=== PATIENT | male | born 1970 | race Caucasian/White ===

== ENCOUNTER 2025-10-18 22:28 | Emergency (ER) | payer MEDICARE, SELFPAY ==
[2025-10-18 22:31] VITALS: BP 102/77
[2025-10-18 23:35] VITALS: BMI 25.1
[2025-10-18 23:51] VITALS: BP 100/78
[2025-10-19] VITALS (11 sets, daily range): BP systolic 94–113; BP diastolic 70–88
[2025-10-19 00:59] LABS: Hematocrit 36.4 % (39.0-52.0); Hemoglobin 13.0 g/dL (13.0-18.0); Mean Corp Hgb Conc. 35.7 g/dL (33.0-37.0); Mean Corpuscular Volume 88.3 fL (80.0-94.0); Nucleated Red Blood Cells % 0 % (-); Platelet Count 233 10^3/uL (130-400); Red Cell Dist. Width 12.7 % (11.5-14.5)
--- NOTE | 2025-10-19 03:05 | DOWNTIME ---
There was a [employer] Downtime on 10/19/2025 from 0100 to 10/19/2025 at 0255. Downtime documentation of patient's care, including medication administrations, has been reconciled in the electronic record per guidelines. Refer to the
patient's paper chart under the miscellaneous tab to see printed paper medication records and downtime forms.
[2025-10-19 03:08] LABS: ALT (SGPT) 18 U/L (0-50); AST (SGOT) 30 U/L (17-59); Albumin 4.4 g/dl (3.5-5.0); Alkaline Phosphatase 77 U/L (38-126); Blood Urea Nitrogen 11 mg/dl (9-20); Calcium 9.9 mg/dl (8.4-10.2); Carbon Dioxide 26 mmol/L (22-30); Chloride 104 mmol/L (98-107); Estimated Creatinine Clearance 99 ml/min; Glucose 101 mg/dl (70-99); Potassium 3.5 mmol/L (3.5-5.1); Sodium 136 mmol/L (135-145); Total Protein 7.3 g/dl (6.3-8.2); eGFR > 60.00
--- NOTE | 2025-10-19 03:27 | ED.GENMED ---
History of Present Illness
General
Chief Complaint: Alcohol Problem
Source: patient
Exam Limitations: none
Time Seen by Provider: 10/19/25 02:56
Nursing documentation reviewed up to this point in time: agreed with
History of Present Illness
History of Present Illness:
Note:
CHIEF COMPLAINT(S)
Alcohol use disorder presenting to the emergency department for assistance with rehabilitation.
HISTORY OF PRESENT ILLNESS
The patient is a 55-year-old male who presented to the emergency department seeking help for alcohol use disorder. He reports drinking a substantial amount daily, although the exact quantity was not specified. He has previously attempted to enter
rehabilitation facilities, having been to [place] and another facility, referred to as [facility]. The patient expressed a willingness to receive assistance and mentioned past attempts at rehabilitation.
SOCIAL HISTORY
The patient reports extensive alcohol use, indicating it as part of his daily life. Attempts to enter rehabilitation facilities in the past have been unsuccessful.
PHYSICAL EXAM
General: Alert, no acute distress.
Skin: Warm, dry.
Head: Normocephalic, atraumatic.
Neck: Supple, trachea midline.
Eye Ears, nose, mouth, and throat: Oral mucosa moist.
Cardiovascular: Normal peripheral perfusion, no edema.
Respiratory: Respirations are non-labored.
Gastrointestinal : Abdomen nondistended
Back: Normal range of motion, normal alignment.
Musculoskeletal: Normal range of motion, normal strength.
Neurological: Alert and oriented to person, place, time, and situation, no focal neurological deficit observed.
Psychiatric: Cooperative, appropriate mood & affect.
PLAN
The patient is to be evaluated by addiction specialists for potential entry into a rehabilitation program. Counseling and further support will be provided by the team specialized in handling alcohol use disorder.
DIFFERENTIAL DIAGNOSIS
The Differential Diagnosis includes, in no particular order and is not limited to:
1. Alcohol use disorder
2. Delirium tremens
3. Alcohol withdrawal syndrome
4. Depression secondary to substance use
5. Anxiety disorder
6. Liver disease related to alcohol use
7. Cardiomyopathy
8. Gastrointestinal complications related to alcohol abuse
9. Nutritional deficiencies
10. Cognitive impairment related to alcohol use
Disposition:
SUMMARY OF ENCOUNTER
The patient is a 55-year-old male seen in the emergency department for alcohol use disorder. He reported daily alcohol consumption and sought assistance for rehabilitation. The patient expressed interest in entering a rehabilitation program,
acknowledging past unsuccessful attempts at facilities such as [facility] [place]. The evaluation in the emergency department showed he was in no acute distress, and his physical examination was unremarkable aside from the history of alcohol
use.
DISPOSITION
The patient is deemed stable for discharge with plans to be placed in a rehabilitation facility.
ASSESSMENT
Alcohol use disorder. The patient is seeking rehabilitation assistance with no current signs of alcohol intoxication.
PLAN
The patient will be evaluated by addiction specialists for potential entry into a rehabilitation program. The necessary arrangements to contact a rehabilitation facility will be attempted for immediate placement.
MEDICAL DECISION MAKING
- Complexity of Data Reviewed: Chronic conditions affecting care such as alcohol use disorder. Potential comorbid diagnoses include alcohol withdrawal syndrome, depression secondary to substance use, anxiety disorder, liver disease related to
alcohol use, alcohol-related cardiomyopathy, gastrointestinal complications, nutritional deficiencies, and cognitive impairment related to alcohol use.
Category 3:
Discussion of management with a mental health liaison or medical management specialist to facilitate the patients entry into a rehabilitation program.
-Risk:
Given the complexity and risk associated with the patients alcohol use disorder, efforts were made for direct referral to a rehabilitation program. Social determinants of health significantly affect this care, given the patients history and daily
alcohol consumption.
If unable to place patient, he will be discharged. Patient was initially uncooperative. He does not show any signs of alcohol withdrawal. no indication for admit at this time.
Past History
Past History
ED Past Medical History: None
ED Past Surgical History: None
Social History
Tobacco: Smoker
Alcohol: Daily
Drug: None
Personal: Single
Living: homeless
Employment: Employed
Family History
Family History: Other (Noncontributory)
Phy Exam
Physical Exam
Physical Exam:
.
Scores
Withdrawal Assessment of Alcohol
Withdrawal Assessment Completed?: Yes
Nausea and Vomiting: No nausea and no vomiting
Tactile Disturbances: None
Tremor: No tremor
Auditory Disturbances: Not present
Paroxysmal Sweats: No sweat visible
Visual Disturbances: Not present
Anxiety: No anxiety, at ease
Headache, Fullness in Head: Not present
Agitation: Normal activity
Orientation and clouding of sensorium: Oriented and can do serial additions
Total CIWA Score: 0
Alcohol Withdrawal Medication Recommendation: Equal to MSAS Score 0-4. Monitor & re-assess q2hrs, NO MEDICATION NEEDED
Course
Orders/Labs/Results
Orders:
Orders
10/19/25 00:45
Alcohol Urgent
Complete Blood Count/With Diff Urgent
Comprehensive Metabolic Panel Urgent
Abnormal Lab Results
10/19/25
00:45
RBC 4.12 L 10^6/uL
(4.70-6.10)
Hct 36.4 L %
(39.0-52.0)
MCH 31.6 H pg
(27.0-31.0)
Absolute Monos (auto) 0.8 H 10^3/uL
(0.1-0.6)
Immature Gran % 0.6 H %
(0-0.5)
Lymphocytes % 19.8 L %
(20.5-51.1)
Monocytes % 11.6 H %
(1.7-9.3)
Glucose 101 H mg/dl
(70-99)
10/19/25 00:45
10/19/25 00:45
Vital Signs
Initial and Last Documented VS:
Initial Vital Signs
Temp Pulse Resp BP Pulse Ox
98 F 90 16 102/77 96
10/18/25 22:31 10/18/25 22:31 10/18/25 22:31 10/18/25 22:31 10/18/25 22:31
Last Documented Vital Signs
Temp Pulse Resp BP Pulse Ox
98 F 54 18 94/80 96
10/18/25 22:31 10/19/25 03:15 10/19/25 03:15 10/19/25 00:40 10/19/25 03:29
*Pulse Oximetry
SaO2: 96
Oxygen Mode of Delivery: Room air
Patient hypoxic: no
*Critical Care Note
Total Time (30-74mins, 75-104mins- exclusive of procedures): Not Applicable
ED Attending Note
-
Portions of this chart may have been created with voice recognition software.� Occasional wrong word or��sound alike� substitutions may have occurred due to the inherent limitations of voice recognition software.
Discharge Plan
Departure
Patient Disposition: Other
Date of Disposition: 10/19/25
Time of Disposition: 03:28
Patient with high blood pressure during this ER visit?: No
Condition: Good
Discharge Problem:
Alcohol abuse
Instructions: Alcohol Use Disorder (DC)
Prescriptions:
No Action
No Current Medications
0
Referrals:
NONE,* [Family Provider, Internal Medicine]
Interventions
Interventions:
*Risk Screen - Suicide Last Done: 10/18/25 22:33
*General Assessment Last Done: 10/18/25 23:35
*Neglect/Abuse Screening Last Done: 10/18/25 22:33
*ED- Fall Risk Assessment Last Done: 10/18/25 23:35
*ED COVID-19 Vaccine History Last Done: 10/18/25 23:35
*ED Influenza Vaccine History Last Done: 10/18/25 23:35
ED- Neurological Assessment Last Done: 10/18/25 23:35
ED-Psychological Assessment Last Done: 10/18/25 23:35
Discharge Date and Time
Print Language: KENYAN
--- NOTE | 2025-10-19 06:32 | ED.GENMED ---
History of Present Illness
General
Chief Complaint: Alcohol Problem
Time Seen by Provider: 10/19/25 02:56
History of Present Illness
History of Present Illness:
.
Past History
Past History
ED Past Medical History: None
ED Past Surgical History: None
Social History
Tobacco: Smoker
Alcohol: Daily
Drug: None
Personal: Single
Living: homeless
Employment: Employed
Family History
Family History: Other (Noncontributory)
Phy Exam
Physical Exam
Physical Exam:
.
Scores
Withdrawal Assessment of Alcohol
Withdrawal Assessment Completed?: Not applicable
Course
Orders/Labs/Results
Orders:
Orders
10/19/25 00:45
Alcohol Urgent
Complete Blood Count/With Diff Urgent
Comprehensive Metabolic Panel Urgent
Abnormal Lab Results
10/19/25
00:45
RBC 4.12 L 10^6/uL
(4.70-6.10)
Hct 36.4 L %
(39.0-52.0)
MCH 31.6 H pg
(27.0-31.0)
Absolute Monos (auto) 0.8 H 10^3/uL
(0.1-0.6)
Immature Gran % 0.6 H %
(0-0.5)
Lymphocytes % 19.8 L %
(20.5-51.1)
Monocytes % 11.6 H %
(1.7-9.3)
Glucose 101 H mg/dl
(70-99)
10/19/25 00:45
10/19/25 00:45
Vital Signs
Initial and Last Documented VS:
Initial Vital Signs
Temp Pulse Resp BP Pulse Ox
98 F 90 16 102/77 96
10/18/25 22:31 10/18/25 22:31 10/18/25 22:31 10/18/25 22:31 10/18/25 22:31
Last Documented Vital Signs
Temp Pulse Resp BP Pulse Ox
98 F 88 25 113/86 95
10/18/25 22:31 10/19/25 08:15 10/19/25 08:15 10/19/25 08:00 10/19/25 06:33
*Pulse Oximetry
SaO2: 95
Oxygen Mode of Delivery: Room air
Patient hypoxic: no
*Critical Care Note
Total Time (30-74mins, 75-104mins- exclusive of procedures): Not Applicable
Update Note
Update Note:
55-year-old male with alcohol use disorder comes in requesting placement. Patient has been to several treatment facilities over the last week. Apparently he has signed out from all of them. He will be reviewed at [facility] at 8 AM. Patient
resting comfortably at this time
ED Attending Note
-
Portions of this chart may have been created with voice recognition software.� Occasional wrong word or��sound alike� substitutions may have occurred due to the inherent limitations of voice recognition software.
Discharge Plan
Departure
Patient Disposition: Psych Facility
Date of Disposition: 10/19/25
Time of Disposition: 03:28
Patient with high blood pressure during this ER visit?: No
Condition: Good
Discharge Problem:
Alcohol abuse
Instructions: Alcohol Use Disorder (DC)
Prescriptions:
No Action
No Current Medications
0
Referrals:
NONE,* [Family Provider, Internal Medicine]
Interventions
Interventions:
*Risk Screen - Suicide Last Done: 10/18/25 22:33
*General Assessment Last Done: 10/18/25 23:35
*Neglect/Abuse Screening Last Done: 10/18/25 22:33
*ED- Fall Risk Assessment Last Done: 10/18/25 23:35
*ED COVID-19 Vaccine History Last Done: 10/18/25 23:35
*ED Influenza Vaccine History Last Done: 10/18/25 23:35
*Nursing Disposition Last Done: 10/19/25 10:23
ED- Neurological Assessment Last Done: 10/18/25 23:35
ED-Psychological Assessment Last Done: 10/18/25 23:35
Discharge Date and Time
Discharge Date/Time: 10/19/25 10:25
Print Language: SRI LANKAN
== END 2025-10-19 10:25 ==
LOC: EMR 22:28
PROVIDERS: Student in an Organized Health Care Education/Training Program; EMERGENCY PHYSICIAN Emergency Medicine
DX: F10.10 Alcohol abuse, uncomplicated (principal); F17.200 Nicotine dependence, unspecified, uncomplicated; Z02.2 Encounter for examination for admission to residential institution
CPT/HCPCS: 99285; 80053; 82077; 85025